=== PATIENT | female | born 1950 | race Caucasian/White ===

== ENCOUNTER 2018-02-06 20:10 | Emergency (ER) | payer OTHER ==
[2018-02-06 20:26] VITALS: BP 198/104
--- NOTE | 2018-02-06 20:40 | EDPHY ---
H & P Stated Complaint: WILLIAM, memory issues earlier tonight,Hx Migraines Time Seen by Provider: 02/06/18 20:39 - Personal History Current Tetanus/Diphtheria Vaccine: Yes Current Tetanus Diphtheria and Acellular Pertussis (TDAP): Yes - Medical/Surgical History Hx Asthma: Yes Hx Chronic Respiratory Disease: No Hx Diabetes: No Hx Cardiac Disease: No Hx Renal Disease: No Hx Cirrhosis: No Hx Alcoholism: No Hx HIV/AIDS: No Hx Splenectomy or Spleen Trauma: No Other PMH: migrains, hypothyroid, hep C - Social History Smoking Status: Never smoked Constitutional: Initial Vital Signs Temperature (C) 36.6 C 02/06/18 20:24 Heart Rate 90 02/06/18 20:24 Respiratory Rate 18 02/06/18 20:24 Blood Pressure 198/104 H 02/06/18 20:24 O2 Sat (%) 98 02/06/18 20:24 O2 Delivery Mode Room Air Allergies/Adverse Reactions: indomethacin [From Indocin] Allergy (Verified 02/06/18 20:23) iodine Allergy (Verified 02/06/18 20:23) Penicillins Allergy (Verified 02/06/18 20:23) Home Medications: Medication Instructions Recorded Synthroid 02/06/18 Medical Decision Making ED Course/Re-evaluation: CHIEF COMPLAINT: Migraine HISTORY OF PRESENT ILLNESS: 67-year-old female with a long history of migraine headaches. Her daughter has significant migraines and so does the patient's mother. This patient got significant menstrual migraines but since menopause has had less frequent migraines. Her migraine today started as her usual visual scotomata and then developed into inability to speak. She could not think what she wanted to say. That lasted for about a 0.5 hr to 45 min. She spoke with the [facility] today help line and they suggested she come here to the emergency department to make sure she was not having a stroke. By the time the patient arrived here her symptoms were almost completely gone. She had no more neurologic symptoms with speaking perfectly. She has no peripheral neurologic symptoms and still has a very mild headache of 2/10. As the headache resolved her symptoms resolved. She did treat the headache at home with caffeine and ibuprofen. This patient has had a history of atypical or neurologic migraines in the past affecting her speech and her sensation REVIEW OF SYSTEMS: A comprehensive 10 system review of systems is otherwise negative aside from elements mentioned in the history of present illness and medical decision making. PHYSICAL EXAM: HR, BP, O2 Sat, RR. Temp noted General Appearance: Alert, well hydrated, appropriate, and non-toxic appearing. Head: Atraumatic without scalp tenderness or obvious injury Eyes: Pupils equal, round, reactive to light and accommodation, EOMI, no trauma , no injection. Ears: Clear bilaterally, no perforation, normal landmarks Nose: Atraumatic, no rhinorrhea, clear. Throat: There is no erythema or exudates, no lesions, normal tonsils, mucus membranes moist. Neck: Supple, 2+ carotid upstroke, nontender, no lymphadenopathy. Respiratory: No retractions, no distress, no wheezes, and no accessory muscle use. Lungs are clear to auscultation bilaterally. Cardiovascular: Regular rate and rhythm, no murmurs, rubs, or gallops. Bilateral carotid, radial, dorsalis pedis, and posterior tibial pulses intact. Good capillary refill all extremities. Gastrointestinal: Abdomen is soft, nontender, non-distended, no masses, no rebound, no guarding, no peritoneal signs. Musculoskeletal: Normal active ROM of all extremities, atraumatic. Neurological: Alert, appropriate, and interactive. The patient has normal DTRs and non-focal cranial nerves, motor, sensory, and cerebellar exam. Skin: No rashes, good turgor, no nodules on palpation. Past medical history: Migraine history Past surgical history: Noncontributory Family history: Significant migraine history daughter , aunt, mother Social history: , employed, does not abuse tobacco drugs or alcohol DIAGNOSTICS/PROCEDURES/CRITICAL CARE TIME: Not warranted DIFFERENTIAL DIAGNOSIS: The differential diagnosis for the patient's headache included but was not limited to subarachnoid hemorrhage, migraine headache, tension headache and infectious causes such as meningitis, pharyngitis and sinusitis. MEDICAL DECISION MAKING: This patient had a classic atypical migraine headache. She had aphasic speech after her visual scotomata and then her headache developed. As her headaches are to resolve and the ibuprofen and caffeine kicked in her aphasia disappeared completely. I did offer this patient a brain MRI to be very sure that she did not have a TIA or stroke however she declines at this time since she feels completely back to normal besides a very mild headache. Additionally I offered her treatment for her headache which she does not want an IV or any headache treatment since it is very mild. She would like to return home at this time and she will follow up if any symptoms return. Departure - Departure Disposition: Home, Routine, Self-Care Clinical Impression: Atypical migraine Condition: Good Instructions: Migraine Headache (ED) Additional Instructions: Return if you are worse or year symptoms return Referrals: ROMAN KEY [Primary Care Provider] - As per Instructions
== END 2018-02-06 21:09 | disposition home or self-care (01) ==
DX: G43.809 Other migraine, not intractable, without status migrainosus (principal); E03.9 Hypothyroidism, unspecified